=== PATIENT | female | born 1965 | race Caucasian/White ===

== ENCOUNTER → 2017-08-17 | Outpatient (CLI) | payer OTHER ==
--- NOTE | 2017-08-17 15:37 | RAD ---
Lumbar spine, 3 views, 08/17/2017: History: Low back pain The lumbar vertebral heights are well-maintained. The intervertebral disc spaces are well preserved. There are mild scattered marginal spurs. There are moderate degenerative changes involving the facet joints in the lower lumbar spine at L4-5 and L5-S1. The paraspinous soft tissues are unremarkable. IMPRESSION: 1. Mild to moderate scattered degenerative changes as described above. 2. No acute abnormality is detected.
--- NOTE | 2017-08-17 15:37 | RAD ---
Left hip, 2 views, 08/17/2017: History: Hip pain No fracture or dislocation is identified. The hip joint space is well-preserved. The periarticular soft tissues are unremarkable. IMPRESSION: No significant left hip abnormality is detected.
== END | disposition home or self-care (01) ==
LOC: PMG 14:41
PROVIDERS: ATTEND General Practice
DX: M25.552 Pain in left hip (principal); M47.896 Other spondylosis, lumbar region
CPT/HCPCS: 72100; 73502

== ENCOUNTER → 2017-12-01 | Outpatient (CLI) | payer OTHER ==
[2017-12-01 13:46] LABS: BASO # 0.1 x10^3/uL (0.0-0.2); BASO % 1 % (0-3); EOS # 0.1 x10^3/uL (0.0-0.7); EOS % 1 % (0-3); HEMATOCRIT 44.3 % (36.0-47.0); HEMOGLOBIN 14.9 g/dL (12.0-15.5); LYMPH # 1.6 x10^3/uL (1.0-4.8); LYMPH % 24 % (24-48); MEAN CORPUSCULAR HEMOGLOBIN 30 pg (25-35); MEAN CORPUSCULAR HGB CONC 34 g/dL (31-37); MEAN CORPUSCULAR VOLUME 90 fL (79-100); MONO # 0.5 x10^3/uL (0.0-1.1); MONO % 7 % (0-9); NEUT # 4.4 x10^3uL (1.8-7.7); NEUT % 67 % (31-73); PLATELET COUNT 218 x10^3/uL (140-400); RED BLOOD COUNT 4.91 x10^6/uL (3.50-5.40); RED CELL DISTRIBUTION WIDTH 13.6 % (11.5-14.5); WHITE BLOOD COUNT 6.6 x10^3/uL (4.0-11.0)
[2017-12-01 13:53] LABS: ALBUMIN 3.9 g/dL (3.4-5.0); ALBUMIN/GLOBULIN RATIO 1.1 (1.0-1.7); CALCIUM 9.9 mg/dL (8.5-10.1); GFR 58.7; POTASSIUM 4.3 mmol/L (3.5-5.1); TOTAL BILIRUBIN 0.7 mg/dL (0.2-1.0); TOTAL PROTEIN 7.3 g/dL (6.4-8.2)
== END | disposition home or self-care (01) ==
LOC: PMG 13:06
PROVIDERS: ATTEND Nurse Practitioner Family
DX: R53.83 Other fatigue (principal)
CPT/HCPCS: 36415; 80053; 85025

== ENCOUNTER → 2018-03-29 | Outpatient (CLI) | payer OTHER ==
--- NOTE | 2018-03-29 15:36 | RAD ---
Complete abdominal ultrasound History: Intermittent abdominal pain for one week. Comparison: None. Procedure: Transabdominal ultrasound images are obtained. Findings: Visualized pancreas is unremarkable. Liver is normal in echogenicity. No focal hepatic masses are identified. Right lobe of the liver measures 15.7 cm. Gallbladder has an unremarkable appearance. Common bile duct measures normally at 3 mm in diameter. Spleen is homogeneous and measures 9.8 cm in length. Right kidney is normal in size and configuration without hydronephrosis. Left kidney is normal in size and configuration without hydronephrosis. Visualized portions of the aorta and IVC have normal caliber. Impression: 1. Unremarkable abdominal ultrasound. Electronically signed by: Malcolm Penny MD (03/29/2018 3:32 PM) [place] [id number]
== END | disposition home or self-care (01) ==
LOC: PMG 10:07
PROVIDERS: ATTEND Neuromusculoskeletal Medicine & OMM
DX: R10.84 Generalized abdominal pain (principal)
CPT/HCPCS: 76700

== ENCOUNTER → 2019-09-10 | Outpatient (CLI) | payer OTHER ==
[2019-09-10 12:17] LABS: BASO # 0.1 x10^3/uL (0.0-0.2); BASO % 1 % (0-3); EOS # 0.1 x10^3/uL (0.0-0.7); EOS % 1 % (0-3); HEMATOCRIT 46.1 % (36.0-47.0); HEMOGLOBIN 15.4 g/dL (12.0-15.5); LYMPH % 12 % (24-48); MEAN CORPUSCULAR HEMOGLOBIN 31 pg (25-35); MEAN CORPUSCULAR HGB CONC 33 g/dL (31-37); MEAN CORPUSCULAR VOLUME 92 fL (79-100); MONO # 0.4 x10^3/uL (0.0-1.1); MONO % 5 % (0-9); NEUT # 6.7 x10^3uL (1.8-7.7); NEUT % 82 % (31-73); PLATELET COUNT 219 x10^3/uL (140-400); RED BLOOD COUNT 5.02 x10^6/uL (3.50-5.40); RED CELL DISTRIBUTION WIDTH 13.3 % (11.5-14.5); WHITE BLOOD COUNT 8.2 x10^3/uL (4.0-11.0)
[2019-09-10 12:32] LABS: ALBUMIN 3.7 g/dL (3.4-5.0); CALCIUM 8.7 mg/dL (8.5-10.1); GFR 58.2; TOTAL BILIRUBIN 0.5 mg/dL (0.2-1.0); TOTAL PROTEIN 7.4 g/dL (6.4-8.2)
[2019-09-10 23:06] LABS: PROGESTERONE 0.2 ng/mL (.)
[2019-09-12 11:08] LABS: ESTROGEN LEVEL 98 pg/mL (.)
[2019-09-12 13:08] LABS: DHEA 107 ng/dL (31-701)
[2019-09-13 09:08] LABS: TESTOSTERONE TOTAL 7 ng/dL (3-41)
== END | disposition home or self-care (01) ==
LOC: LAB 11:34
PROVIDERS: ATTEND Physician Assistant Medical
DX: E34.9 Endocrine disorder, unspecified (principal)
CPT/HCPCS: 36415; 80053; 82626; 82672; 84144; 84402; 84403; 84443; 85025

== ENCOUNTER → 2019-12-03 | Outpatient (CLI) | payer OTHER ==
[2019-12-03 12:06] LABS: BASO # 0.1 x10^3/uL (0.0-0.2); BASO % 1 % (0-3); EOS % 0 % (0-3); HEMATOCRIT 43.7 % (36.0-47.0); HEMOGLOBIN 14.9 g/dL (12.0-15.5); LYMPH # 1.4 x10^3/uL (1.0-4.8); LYMPH % 23 % (24-48); MEAN CORPUSCULAR HEMOGLOBIN 31 pg (25-35); MEAN CORPUSCULAR HGB CONC 34 g/dL (31-37); MEAN CORPUSCULAR VOLUME 90 fL (79-100); MONO # 0.3 x10^3/uL (0.0-1.1); MONO % 6 % (0-9); NEUT # 4.3 x10^3uL (1.8-7.7); NEUT % 71 % (31-73); PLATELET COUNT 221 x10^3/uL (140-400); RED BLOOD COUNT 4.83 x10^6/uL (3.50-5.40); RED CELL DISTRIBUTION WIDTH 13.9 % (11.5-14.5); WHITE BLOOD COUNT 6.1 x10^3/uL (4.0-11.0)
[2019-12-03 12:15] LABS: BILIRUBIN,URINE NEG (NEG); CLARITY,URINE HAZY; COLOR,URINE AMBER; GLUCOSE,URINE NEG (NEG); NITRITE,URINE NEG (NEG); UROBILINOGEN,URINE 0.2 mg/dL (0.2 mg/dL)
[2019-12-03 12:16] LABS: BACTERIA,URINE MOD /HPF (0-FEW); SQUAMOUS EPITHELIAL CELL,UR FEW /LPF
[2019-12-03 12:18] LABS: ALBUMIN 4.1 g/dL (3.4-5.0); ALBUMIN/GLOBULIN RATIO 1.1 (1.0-1.7); ALK PHOS 86 U/L (46-116); ALT (SGPT) 15 U/L (14-59); ANION GAP 6 (6-14); AST (SGOT) 11 U/L (15-37); BLOOD UREA NITROGEN 25 mg/dL (7-20); BUN/CREATININE RATIO 23 (6-20); CALCIUM 9.5 mg/dL (8.5-10.1); CARBON DIOXIDE 29 mmol/L (21-32); CHLORIDE 101 mmol/L (98-107); CREATININE 1.1 mg/dL (0.6-1.0); GFR 52.2; GLUCOSE 100 mg/dL (70-99); SODIUM 136 mmol/L (136-145); TOTAL BILIRUBIN 0.5 mg/dL (0.2-1.0)
[2019-12-03 12:36] LABS: TOTAL PROTEIN 7.9 g/dL (6.4-8.2)
[2019-12-03 12:38] LABS: C REACTIVE PROTEIN < 0.5 mg/L (0-3.3)
[2019-12-03 13:12] LABS: SEDIMENTATION RATE 5 (0-25)
[2019-12-03 14:41] LABS: FREE T4 1.1 ng/dL (0.76-1.46); THYROID STIM HORMONE (TSH) 2.116 uIU/mL (0.358-3.740)
[2019-12-03 18:06] LABS: RHEUMATOID FACTOR <10.0 IU/mL (0.0-13.9); TESTOSTERONE TOTAL 448 ng/dL (3-41)
[2019-12-05 18:07] LABS: ANA INTERP Negative (.)
== END | disposition home or self-care (01) ==
LOC: LAB 11:22
PROVIDERS: ATTEND Physician Assistant Medical
DX: M25.50 Pain in unspecified joint (principal); E03.9 Hypothyroidism, unspecified
CPT/HCPCS: 36415; 80053; 80061; 81001; 82306; 82607; 84403; 84439; 84443; 84481; 85025; 85651; 86038; 86140; 86431; 87086

== ENCOUNTER → 2020-05-05 | Outpatient (CLI) | payer OTHER | END | disposition home or self-care (01) | LOC: LAB 14:51 | PROVIDERS: ATTEND Internal Medicine Cardiovascular Disease | DX: U07.1 COVID-19 (principal); R11.2 Nausea with vomiting, unspecified | CPT/HCPCS: U0003-CS ==

== ENCOUNTER 2020-05-14 13:58 | Emergency (ER) | payer OTHER ==
[~2020-05-14] VITALS: Ht 170.2 cm; Wt 84.2 kg
--- NOTE | 2020-05-14 14:47 | RAD ---
INDICATION: Reason: chest pain / Spl. Instructions: / History: COMPARISON: August 2016 FINDINGS: Single view of chest obtained. Cardiac silhouette is unremarkable. Mild haziness at the lung bases. No gross osseous destructive lesion. IMPRESSION: * Mild haziness at the lung bases. A portion this is likely secondary to overlapping structures but mild atelectasis or infiltrate could have this appearance. Electronically signed by: Johnathan Jung MD (05/14/2020 2:44 PM) [id number]
[2020-05-14] MEDS ORDERED: KETOROLAC 30 MG/ML VIAL. IVP ONE (15:00)
[2020-05-14] MEDS ORDERED: ONDANSETRON PF 4 MG/2 ML VIAL. IVP ONE (15:00)
[2020-05-14 15:04] LABS: BASO % 0 % (0-3); EOS % 0 % (0-3); LYMPH # 1.1 x10^3/uL (1.0-4.8); LYMPH % 27 % (24-48); MEAN CORPUSCULAR HEMOGLOBIN 30 pg (25-35); MEAN CORPUSCULAR HGB CONC 33 g/dL (31-37); MEAN CORPUSCULAR VOLUME 90 fL (79-100); MONO # 0.3 x10^3/uL (0.0-1.1); MONO % 8 % (0-9); NEUT # 2.7 x10^3uL (1.8-7.7); NEUT % 65 % (31-73); PLATELET COUNT 157 x10^3/uL (140-400); RED BLOOD COUNT 4.99 x10^6/uL (3.50-5.40); RED CELL DISTRIBUTION WIDTH 13.5 % (11.5-14.5); WHITE BLOOD COUNT 4.1 x10^3/uL (4.0-11.0)
[2020-05-14 15:14] LABS: CALCIUM 8.9 mg/dL (8.5-10.1); CREATININE 1.2 mg/dL (0.6-1.0); POTASSIUM 3.6 mmol/L (3.5-5.1)
[2020-05-14 15:26] LABS: ALBUMIN 3.5 g/dL (3.4-5.0); ALBUMIN/GLOBULIN RATIO 0.9 (1.0-1.7); C REACTIVE PROTEIN 4.5 mg/L (0-3.3); TOTAL BILIRUBIN 0.6 mg/dL (0.2-1.0); TOTAL PROTEIN 7.4 g/dL (6.4-8.2)
[2020-05-14] MEDS ORDERED: IV NORMAL SALINE 1,000ML 1,000 ML IV ONE (15:30)
--- NOTE | 2020-05-14 15:33 | EKG ---
[address] [address] Test Date: 2020-05-14 Test Time: 14:34:58 Pat Name: GERARDO CUEVA Department: Room: Gender: F Certified Energy Manager: TO : 1965 Requested By: ROD SPICER Order Number: [id number] Reading MD: Measurements Intervals [place] Rate: 88 P: -36 FL: 132 QRS: 61 QRSD: 88 T: 31 QT: 330 QTc: 402 Interpretive Statements SINUS RHYTHM NORMAL ECG RI6.02 No previous ECG available for comparison
[2020-05-14 15:36] LABS: BILIRUBIN,URINE SMALL (NEG); CLARITY,URINE CLEAR; COLOR,URINE YELLOW; GLUCOSE,URINE NEG (NEG); NITRITE,URINE NEG (NEG); UROBILINOGEN,URINE 0.2 mg/dL (0.2 mg/dL)
[2020-05-14 15:37] LABS: BACTERIA,URINE 0 /HPF (0-FEW); RBC,URINE OCC /HPF (0-2); WBC,URINE OCC /HPF (0-4)
[2020-05-14] MEDS ORDERED: PRED50TA PO (15:51)
--- NOTE | 2020-05-14 15:51 | PHYS DOC ---
Past History Past Medical History: GERD Past Surgical History: Tubal ligation Alcohol Use: Rarely Adult General Chief Complaint Chief Complaint: MULTIPLE COMPLAINTS HPI HPI Patient is 55-year-old female with known coronavirus 19 who presents to the emergency room complaining of chest pains, shortness of breath, body aches, fatigue. She has had symptoms for the last week. They have progressively gotten worse. The chest pain started yesterday. Chest pains come and go and are not in the same place every time. They are not related to breathing. Review of Systems Review of Systems General: Denies fever, chills, sweats. Reports fatigue Eyes: Denies drainage, blurred vision, eye redness HENT: Denies rhinorrhea, sore throat, earache Respiratory: Reports cough, shortness of breath, chest pains Cardiac: Denies edema, palpitations GI: Denies abdominal pain, vomiting. Reports nausea MSK: Denies back pain, neck pain Skin: Denies rash, jaundice Neuro: Denies dizziness reports headache Psychiatric: Denies SI/HI Current Medications Current Medications Current Medications Medications (Trade) Dose Ordered Sig/Heather Start Time Stop Time Status Last Admin Dose Admin Ketorolac Tromethamine (Toradol 30mg Vial) 30 mg 1X ONCE 05/14/20 15:00 05/14/20 15:01 DC 05/14/20 15:00 30 MG Ondansetron HCl (Zofran) 4 mg 1X ONCE 05/14/20 15:00 05/14/20 15:01 DC 05/14/20 15:00 4 MG Sodium Chloride 1,000 ml @ 1,000 mls/hr 1X ONCE 05/14/20 15:30 05/14/20 16:29 Allergies Allergies Allergies Coded Allergies Type Severity Reaction Last Updated Verified No Known Drug Allergies 05/14/20 No Physical Exam Physical Exam General: Awake, alert, NAD. Well Nourished, well hydrated. Cooperative HEENT: Atraumatic, EOMI, PERRL, airway patent, moist oral mucosa Neck: Supple, trachea midline Respiratory: CTA bilaterally, normal effort, no wheezing/crackles CV: RRR, no murmur, cap refill <2 GI: Soft, nondistended, nontender, no masses MSK: No obvious deformities Skin: Warm, dry, intact Neuro: A&O x3, speech NL, sensory and motor grossly intact, no focal deficits Psych: Normal affect, normal mood, not suicidal or homicidal Current Patient Data Vital Signs Vital Signs Date Time Temp Pulse Resp B/P (MAP) Pulse Ox O2 Delivery O2 Flow Rate FiO2 05/14/20 15:07 85 16 111/73 (86) 97 Room Air 05/14/20 14:28 98.2 Lab Results Laboratory Tests Test 05/14/20 14:44 05/14/20 15:09 White Blood Count 4.1 x10^3/uL (4.0-11.0) Red Blood Count 4.99 x10^6/uL (3.50-5.40) Hemoglobin 15.0 g/dL (12.0-15.5) Hematocrit 45.0 % (36.0-47.0) Mean Corpuscular Volume 90 fL (79-100) Mean Corpuscular Hemoglobin 30 pg (25-35) Mean Corpuscular Hemoglobin Concent 33 g/dL (31-37) Red Cell Distribution Width 13.5 % (11.5-14.5) Platelet Count 157 x10^3/uL (140-400) Neutrophils (%) (Auto) 65 % (31-73) Lymphocytes (%) (Auto) 27 % (24-48) Monocytes (%) (Auto) 8 % (0-9) Eosinophils (%) (Auto) 0 % (0-3) Basophils (%) (Auto) 0 % (0-3) Neutrophils # (Auto) 2.7 x10^3uL (1.8-7.7) Lymphocytes # (Auto) 1.1 x10^3/uL (1.0-4.8) Monocytes # (Auto) 0.3 x10^3/uL (0.0-1.1) Eosinophils # (Auto) 0.0 x10^3/uL (0.0-0.7) Basophils # (Auto) 0.0 x10^3/uL (0.0-0.2) D-Dimer (Lyubov) 0.38 mg/L (0.00-0.50) Sodium Level 139 mmol/L (136-145) Potassium Level 3.6 mmol/L (3.5-5.1) Chloride Level 103 mmol/L (98-107) Carbon Dioxide Level 27 mmol/L (21-32) Anion Gap 9 (6-14) Blood Urea Nitrogen 14 mg/dL (7-20) Creatinine 1.2 mg/dL (0.6-1.0) H Estimated GFR (Cockcroft-Gault) 47.0 BUN/Creatinine Ratio 12 (6-20) Glucose Level 91 mg/dL (70-99) Calcium Level 8.9 mg/dL (8.5-10.1) Total Bilirubin 0.6 mg/dL (0.2-1.0) Aspartate Amino Transferase (AST) 11 U/L (15-37) L Alanine Aminotransferase (ALT) 13 U/L (14-59) L Alkaline Phosphatase 80 U/L (46-116) Lactate Dehydrogenase 177 U/L (81-234) Creatine Kinase 38 U/L (26-192) Troponin I Quantitative < 0.017 ng/mL (0-0.055) C-Reactive Protein 4.5 mg/L (0-3.3) H OF-Lcf-H-Type Natriuretic Peptide 65 pg/mL (0-124) Total Protein 7.4 g/dL (6.4-8.2) Albumin 3.5 g/dL (3.4-5.0) Albumin/Globulin Ratio 0.9 (1.0-1.7) L Urine Collection Type Unknown Urine Color Yellow Urine Clarity Clear Urine pH 6.0 Urine Specific [place] >=1.030 Urine Protein Trace (NEG-TRACE) Urine Glucose (UA) Neg mg/dL (NEG) Urine Ketones (Stick) Trace mg/dL (NEG) Urine Blood Neg (NEG) Urine Nitrite Neg (NEG) Urine Bilirubin Small (NEG) Urine Urobilinogen Dipstick 0.2 mg/dL (0.2 mg/dL) Urine Leukocyte Esterase Trace (NEG) Urine RBC Occ /HPF (0-2) Urine WBC Occ /HPF (0-4) Urine Squamous Epithelial Cells None /LPF Urine Bacteria 0 /HPF (0-FEW) EKG EKG [] Radiology/Procedures Radiology/Procedures [] Course & Med Decision Making Course & Med Decision Making Pertinent Labs and Imaging studies reviewed. (See chart for details) Patient is a 55-year-old female who presents to the emergency room with known coronavirus. She has been having intermittent chest pains and shortness of breath. She feels generally unwell. Overall exam is normal. Patient overall appears well. Vitals are normal. Coronavirus work-up was ordered and patient's labs are unremarkable. Her d-dimer is negative. She is not at risk for a pulmonary embolism at this time. I have recommended doing steroids and continuing symptomatic care. Patient's test results and vitals while in the ED were fully reviewed and discussed with the patient. Patient is stable and at this time does not need admission to the hospital. We have discussed strict return precautions and the importance of following up with their Primary Care Physician. Patient stated understanding and was given an opportunity to ask any questions. Patient is in agreement with plan. Dragon Disclaimer Dragon Disclaimer This electronic medical record was generated, in whole or in part, using a voice recognition dictation system. Departure Departure: Impression: Primary Impression: COVID-19 Disposition: 01 HOME/RESIDENCE PRIOR TO ADM Condition: STABLE Referrals: HOWARD MORALES (PCP) Patient Instructions: Shortness of Breath, Thib-uu-Hgej Scripts Prednisone (PREDNISONE) 50 Mg Tablet 1 TAB PO DAILY for inflammation, #7 TAB You received this medication in the emergency room today. You will starting your next dose tomorrow. Prov: ROD SPICER MD 05/14/20 ROD SPICER MD May 14, 2020 15:51
[2020-05-14 17:21] VITALS: BP 126/70
== END 2020-05-14 17:10 | disposition home or self-care (01) ==
LOC: ER 13:58
DX: U07.1 COVID-19 (principal); K21.9 Gastro-esophageal reflux disease without esophagitis
CPT/HCPCS: 36415; 71045; 80053; 81001; 82550; 83615; 83880; 84484; 85025; 85379; 86140; 87086; 93005; 96361; 96374; 96375; 99285; J1885; J2405; J7030

== ENCOUNTER → 2020-08-18 | Outpatient (CLI) | payer OTHER ==
[~2020-08-18] MED LIST: PRED50TA PO
[2020-08-18 13:17] LABS: CLARITY,URINE HAZY; COLOR,URINE ORANGE
[2020-08-18 13:38] LABS: BACTERIA,URINE FEW /HPF (0-FEW); RBC,URINE OCC /HPF (0-2); SQUAMOUS EPITHELIAL CELL,UR FEW /LPF; WBC,URINE OCC /HPF (0-4)
== END ==
LOC: LAB 11:14
PROVIDERS: ATTEND Nurse Practitioner Family
DX: N39.0 Urinary tract infection, site not specified (principal)
CPT/HCPCS: 81001

== ENCOUNTER 2020-10-06 22:19 | Emergency (ER) | payer OTHER ==
[~2020-10-06] VITALS: Ht 170.2 cm; Wt 84.2 kg
[2020-10-06 22:30] VITALS: BP 150/72
--- NOTE | 2020-10-06 23:08 | RAD ---
Exam: Left knee 4 views INDICATION: Knee injury, pain TECHNIQUE: Frontal, lateral and oblique views of the left knee Comparisons: None FINDINGS: Bone mineralization is normal. No acute or healed fractures. Soft tissues are unremarkable. Joint spa toby are well-maintained. IMPRESSION: No acute osseous abnormality. Electronically signed by: Bright Miller MD (10/06/2020 11:06 PM) [facility]
[2020-10-06] MEDS ORDERED: HYDR-2155 PO (23:36)
--- NOTE | 2020-10-06 23:37 | PHYS DOC ---
Past History Past Medical History: GERD Past Surgical History: Tubal ligation Alcohol Use: Rarely General Adult EDM: Chief Complaint: KNEE INJURY HPI: HPI: Patient is a 55-year-old female coming in for left knee pain not relieved by ibuprofen. 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 States the pain is more severe in the medial aspect of the joint line. Pain radiates down to lower leg. Did not hear a popping sound at the time, but pain was instantaneous. Denies any previous injuries to that knee. No lower extremity edema. States he otherwise has been well. Review of Systems: Review of Systems: All other systems within normal limits except for as noted in the HPI Current Medications: Current Meds: Current Medications Medications (Trade) Dose Ordered Sig/Heather Start Time Stop Time Status Last Admin Dose Admin Fentanyl Citrate (Fentanyl 2ml Vial) 75 mcg 1X ONCE 10/06/20 22:45 10/06/20 22:56 DC Allergies: Allergies: Allergies Coded Allergies Type Severity Reaction Last Updated Verified No Known Drug Allergies 05/14/20 No Physical Exam: PE: Constitutional: Well developed, well nourished, no acute distress, non-toxic appearance. [] HENT: Normocephalic, atraumatic, bilateral external ears normal, nose normal. [] Eyes: PERRLA, conjunctiva normal, no discharge. [] Neck: No rigidity, supple, no stridor. [] Cardiovascular: Regular rate and rhythm, brisk cap refill [] Lungs & Thorax: Non labored symmetric respirations, no tachypnea or respiratory distress [] Abdomen: Soft, nondistended. Skin: Warm, dry, no erythema, no rash. [] Back: Unremarkable Extremities: No deformities, range of motion grossly intact, no lower extremity edema. Significant joint effusion. No varusvalgusposterioranterior laxity. Pain over medial joint line. [] Neurologic: Alert and oriented X 3, no focal deficits noted. [] Psychologic: Affect normal, judgement normal, mood normal. [] Current Patient Data: Vital Signs: Vital Signs Date Time Temp Pulse Resp B/P (MAP) Pulse Ox O2 Delivery O2 Flow Rate FiO2 10/06/20 22:30 67 16 150/72 (98) 96 Room Air EKG: EKG: [] Radiology/Procedures: Radiology/Procedures: Exam: Left knee 4 views INDICATION: Knee injury, pain TECHNIQUE: Frontal, lateral and oblique views of the left knee Comparisons: None FINDINGS: Bone mineralization is normal. No acute or healed fractures. Soft tissues are unremarkable. Joint spaces are well-maintained. IMPRESSION: No acute osseous abnormality. Heart Score: Risk Factors: Risk Factors: DM, Current or recent (<one month) smoker, HTN, HLP, family history of CAD, obesity. Risk Scores: Score 0 - 3: 2.5% MACE over next 6 weeks - Discharge Home Score 4 - 6: 20.3% MACE over next 6 weeks - Admit for Clinical Observation Score 7 - 10: 72.7% MACE over next 6 weeks - Early Invasive Strategies Course & Med Decision Making: Course & Med Decision Making Pertinent Labs and Imaging studies reviewed. (See chart for details) [] Dragon Disclaimer: Dragon Disclaimer: This electronic medical record was generated, in whole or in part, using a voice recognition dictation system. Departure Departure: Impression: Primary Impression: Left knee injury Disposition: 01 DC HOME SELF CARE/HOMELESS Condition: STABLE Referrals: HOWARD MORALES (PCP) [facility] Patient Instructions: RICE - Routine Care for Injuries Additional Instructions: Use hinged knee brace on left knee to provide comfort and stability. Scripts Hydrocodone Bit/Acetaminophen (HYDROCODONE-APAP 5-325 ) 1 Each Tablet 1 TAB PO PRN Q6HRS PRN for PAIN for 5 Days, #15 TAB 0 Refills Caution: this medication can make you drowsy. Do not drive or operate heavy machinery when using this medication. Prov: KODY BALL MD 10/06/20 KODY BALL MD Oct 06, 2020 23:37
== END 2020-10-06 23:43 | disposition home or self-care (01) ==
LOC: ER 22:19
DX: S89.92XA Unspecified injury of left lower leg, initial encounter (principal); K21.9 Gastro-esophageal reflux disease without esophagitis; X50.9XXA Other and unspecified overexertion or strenuous movements or postures, initial encounter; Y93.89 Activity, other specified; Y92.89 Other specified places as the place of occurrence of the external cause; Y99.8 Other external cause status
CPT/HCPCS: 73564; 99283

== ENCOUNTER → 2020-10-10 | Outpatient (CLI) | payer OTHER ==
[2020-10-06 22:30] VITALS: BP 150/72
[~2020-10-10] MED LIST changes: +HYDR-2155 PO
--- NOTE | 2020-10-10 16:26 | RAD ---
XR KNEE_AP BILAT STANDING History: Reason: LEFT KNEE PAIN / Spl. Instructions: / History: Comparison: Left knee radiograph 10/06/2020. Technique: AP bilateral standing view of the knees. Findings: Osseous mineralization is normal. There is no fracture or dislocation. Medial and lateral tibial femo ral compartment joint spaces are maintained symmetrically. Soft tissues are unremarkable. Impression: 1. Unremarkable standing AP bilateral knees. No significant joint space narrowing. Electronically signed by: Micah Aguillon MD (10/10/2020 4:23 PM) [facility]
== END ==
LOC: RAD 10:15
PROVIDERS: ATTEND Physician Assistant
DX: M25.562 Pain in left knee (principal)
CPT/HCPCS: 73565

== ENCOUNTER → 2021-05-05 | Outpatient (CLI) | payer OTHER ==
[2021-05-05 13:03] LABS: BASO # 0.1 x10^3/uL (0.0-0.2); BASO % 1 % (0-3); EOS % 1 % (0-3); HEMATOCRIT 41.6 % (36.0-47.0); HEMOGLOBIN 13.9 g/dL (12.0-15.5); LYMPH # 1.7 x10^3/uL (1.0-4.8); LYMPH % 30 % (24-48); MEAN CORPUSCULAR HEMOGLOBIN 31 pg (25-35); MEAN CORPUSCULAR HGB CONC 33 g/dL (31-37); MEAN CORPUSCULAR VOLUME 94 fL (79-100); MONO # 0.4 x10^3/uL (0.0-1.1); MONO % 7 % (0-9); NEUT # 3.6 x10^3uL (1.8-7.7); NEUT % 62 % (31-73); PLATELET COUNT 210 x10^3/uL (140-400); RED BLOOD COUNT 4.44 x10^6/uL (3.50-5.40); RED CELL DISTRIBUTION WIDTH 13.4 % (11.5-14.5); WHITE BLOOD COUNT 5.8 x10^3/uL (4.0-11.0)
[2021-05-05 13:09] LABS: ALBUMIN 3.8 g/dL (3.4-5.0); ALBUMIN/GLOBULIN RATIO 1.1 (1.0-1.7); CALCIUM 9.2 mg/dL (8.5-10.1); CREATININE 0.8 mg/dL (0.6-1.0); GFR 74.7; POTASSIUM 4.3 mmol/L (3.5-5.1); TOTAL BILIRUBIN 0.7 mg/dL (0.2-1.0); TOTAL PROTEIN 7.2 g/dL (6.4-8.2); URIC ACID 3.8 mg/dL (2.6-6.0)
[2021-05-05 14:35] LABS: SEDIMENTATION RATE 3 (0-25)
[2021-05-06 06:09] LABS: RHEUMATOID FACTOR <10.0 IU/mL (0.0-13.9)
[2021-05-06 14:33] LABS: FREE T4 0.95 ng/dL (0.76-1.46); THYROID STIM HORMONE (TSH) 1.849 uIU/mL (0.358-3.740)
[2021-05-07 20:08] LABS: ANA INTERP Positive (.)
== END ==
LOC: LAB 12:19
PROVIDERS: ATTEND Physician Assistant Medical
DX: M06.4 Inflammatory polyarthropathy (principal); R20.2 Paresthesia of skin; E55.9 Vitamin D deficiency, unspecified; E53.8 Deficiency of other specified B group vitamins
CPT/HCPCS: 36415; 80053; 82150; 82306; 82607; 83690; 84439; 84443; 84550; 85025; 85651; 86038; 86431

== ENCOUNTER 2021-05-09 23:06 | Emergency (ER) | payer OTHER ==
[~2021-05-09] VITALS: Ht 373.4 cm; Wt 79.3 kg
--- NOTE | 2021-05-09 23:25 | PHYS DOC ---
Past History Past Medical History: GERD Past Medical History G2T2 Past Surgical History: Other Alcohol Use: Rarely General Adult EDM: Chief Complaint: CHEST PAIN HPI: HPI: ".. I got really severe right upper abdomen and lower Rt. chest pain... areas.. My doctor thinks it is my gall bladder..and I was to get a ultra sound for it.. but the pain is really bad tonight.. " Patient is a 56 year old female who presents with above hx and complaints of Rt.upper abdomen and chest pain. Pain is at times 10 out of 10 and radiates to her back right shoulder. Pt. has history of GERD complaints and her right upper abdomen pain is usually associated with high fat foods. Pain was associated with intake of salad with salad dressing tonight. Patient has been seen by her primary care Floyd for her complaints and has pending US gall bladder colic work up. Pt. has taken anti acids and Zantac with no relief tonight. No history of bad food intake. No history of trauma. No history of specific ill contacts. No history of fever or chills. No recent travel. Patient has multiple family members have had gallbladder problems requiring cholecystectomy at her age. Review of Systems: Review of Systems: Constitutional: Denies fever or chills Eyes: Denies change in visual acuity HENT: Denies nasal congestion or sore throat Respiratory: Denies cough or shortness of breath Cardiovascular: Complains of epigastric chest pain and GERD symptoms GI: Complains of severe right upper quadrant abdominal pain, nausea, vomiting. Denies, bloody stools or diarrhea : Denies dysuria Musculoskeletal: Denies back pain or joint pain Integument: Denies rash Neurologic: Denies headache, focal weakness or sensory changes Endocrine: Denies polyuria or polydipsia Lymphatic: Denies swollen glands Psychiatric: Denies depression or anxiety Family History: Family History: Multiple family members with gallbladder disease requiring cholecystectomy Current Medications: Current Meds: See nursing for home meds Allergies: Allergies: Allergies Coded Allergies Type Severity Reaction Last Updated Verified No Known Drug Allergies 05/14/20 No Physical Exam: PE: Constitutional: Well developed, well nourished, in acute distress, non-toxic appearance. [] HENT: Normocephalic, atraumatic, bilateral external ears normal, oropharynx moist, no oral exudates, nose normal. [] Eyes: PERRLA, EOMI, conjunctiva normal, no discharge. [] Neck: Normal range of motion, no tenderness, supple, no stridor. [] Cardiovascular:Heart rate regular rhythm, no murmur [] bedside monitor shows sinus rhythm rate 60s to 70 Lungs & Thorax: Bilateral breath sounds equal at apex on auscultation [] Abdomen: Bowel sounds normal, soft, epigastric and right upper quadrant tenderness, no masses, no pulsatile masses. [] Rebound to right upper quadrant Skin: Warm, dry, no erythema, no rash. [] Back: No tenderness, no CVA tenderness. [] Extremities: No tenderness, no cyanosis, no clubbing, ROM intact, no edema. [] No psoas sign. No cording. Neurologic: Alert and oriented X 3, normal motor function, normal sensory function, no focal deficits noted. [] Psychologic: Affect anxious, judgement normal, mood normal. [] Current Patient Data: Vital Signs: Vital Signs Date Time Temp Pulse Resp B/P (MAP) Pulse Ox O2 Delivery O2 Flow Rate FiO2 05/09/21 23:18 97.9 78 22 126/73 (90) 95 Room Air EKG: EKG: My interpretation of EKG shows a sinus rhythm at 65 bpm. No acute morphology. Time of this EKG is 2321 hrs. [] Radiology/Procedures: Radiology/Procedures: [][place] [id number] IMAGING REPORT Signed PATIENT: GERARDO CUEVA ACCOUNT: [id number] : 1965 LOCATION: ER AGE: 56 SEX: F EXAM STATUS: REG ER ORD. PHYSICIAN: JORDEN FRANCO MD REASON: pain, N/V, OMNI 300, 75ml & OMNI 240, 30ml PROCEDURE: CT ABD PELV W/ORAL&IV CONTRAST EXAM: CT Abdomen and Pelvis with IV contrast CLINICAL HISTORY: Abdominal pain, nausea, vomiting. COMPARISON: none TECHNIQUE: Helical CT of the abdomen and pelvis was performed following the administration of intravenous contrast. Axial, coronal and sagittal reformatted images were generated. PQRS compliance statement - One or more of the following individualized dose reduction techniques were utilized for this study: 1. Automated exposure control 2. Adjustment of the mA and/or kV according to patient size 3. Use of iterative reconstruction technique FINDINGS: Lower Chest: Linear opacities in lower lobes likely scarring/atelectasis. Abdomen and Pelvis: Gallbladder is normal. No focal liver lesion although there is mild periportal edema, uncertain clinical significance. Spleen, adrenal glands, pancreas are unremarkable. Aorta is normal in caliber. Symmetric nephrograms. No focal renal lesion. No hydronephrosis. No hydroureter. Appendix is normal. Moderate colonic stool content is seen. No small or large bowel dilatation. No bowel obstruction. No abdominal or pelvic ascites. No abdominal or pelvic lymphadenopathy. Bones: No aggressive osseous lesion. IMPRESSION: 1. Moderate colonic stool content. No bowel obstruction. 2. Mild periportal edema, uncertain clinical significance. 3. Gallbladder is normal. No CT evidence for acute cholecystitis. Electronically signed by: Andrew Casey MD (05/10/2021 4:57 AM) [facility] DI[facility]ATED AND SIGNED BY: ANDREW CASEY MD DATE: 05/10/21446 CC: JORDEN FRANCO MD; HOWARD MORALES ~MTH0 [address] [place] [address] IMAGING REPORT Signed PATIENT: GERARDO CUEVA ACCOUNT: [id number] : 1965 LOCATION: ER AGE: 56 SEX: F EXAM STATUS: REG ER ORD. PHYSICIAN: JORDEN FRANCO MD REASON: cp, abd pain PROCEDURE: ACUTE ABDOMEN SERIES EXAM: Frontal view of the chest, AP views of the abdomen in upright and supine positions. CLINICAL INDICATION: Reason: cp, abd pain / Spl. Instructions: / History: COMPARISON: None. FINDINGS and IMPRESSION: The heart is not enlarged. Mediastinal and hilar contours are normal. Patchy opacities right lung base possibly atelectasis or developing consolidation. No pleural effusion or pneumothorax. No abnormal small or large bowel dilatation. Moderate colonic stool content. No abnormal soft tissue mass effect. No suspicious calcifications are seen. No free intraperitoneal gas. Electronically signed by: Andrew Casey MD (05/10/2021 1:58 AM) [facility]ATED AND SIGNED BY: ANDREW CASEY MD DATE: 05/10/21 0157 CC: JORDEN FRANCO MD; HOWARD MORALES ~MTH0 0 Heart Score: C/O Chest Pain: Yes HEART Score for Chest Pain: HEART Score for Chest Pain Response (Comments) Value History Slighlty/Non-Suspicious 0 ECG Normal 0 Age >45 - < 65 1 Risk Factors No Risk Factors 0 Troponin < Normal Limit 0 Total 1 Risk Factors: Risk Factors: DM, Current or recent (<one month) smoker, HTN, HLP, family history of CAD, obesity. Risk Scores: Score 0 - 3: 2.5% MACE over next 6 weeks - Discharge Home Score 4 - 6: 20.3% MACE over next 6 weeks - Admit for Clinical Observation Score 7 - 10: 72.7% MACE over next 6 weeks - Early Invasive Strategies Course & Med Decision Making: Course & Med Decision Making Pertinent Labs and Imaging studies reviewed. (See chart for details) Patient continues to have difficulty drinking contrast in spite of Zofran meds.. Plan to obtain CT at 0400 hrs. Patient symptoms resolved and was discharged home with follow-up with primary care. Patient to keep appointment for ultrasound study of her gallbladder on Tuesday. Patient return if any concerns. Recommend patient stay on a clear fluid diet only for the next 48 hours. No solids. No milk products. Clear fluids only to allow bowel rest. Patient to continue her antacids as previously directed. Return if any concerns. []Impression: 1. Biliary colic 2. Abdomen pain 3. Constipation Dragon Disclaimer: Dragmarsha Disclaimer: This electronic medical record was generated, in whole or in part, using a voice recognition dictation system. Departure Departure: Referrals: HOWARD MORALES (PCP) [place] Disclaimer This chart was dictated in whole or in part using Voice Recognition software in a busy, high-work load, and often noisy Emergency Department environment. It may contain unintended and wholly unrecognized errors or omissions. JORDEN FRANCO MD May 09, 2021 23:25
[2021-05-09] MEDS ORDERED: FAMOTIDINE 20 MG/2 ML VIAL IVP ONE (23:45)
[2021-05-09] MEDS ORDERED: IV RINGERS SOLUTION,LACTATED 1,000 ML IV SCH (23:45)
[2021-05-09] MEDS ORDERED: ONDANSETRON PF 4 MG/2 ML VIAL. IVP ONE (23:45)
[2021-05-09] MEDS ORDERED: MORPHINE SULFATE 10 MG/ML SYRINGE. SQ ONE (23:45)
[2021-05-10 00:09] LABS: BASO # 0.1 x10^3/uL (0.0-0.2); BASO % 1 % (0-3); EOS # 0.1 x10^3/uL (0.0-0.7); EOS % 2 % (0-3); HEMATOCRIT 42.6 % (36.0-47.0); HEMOGLOBIN 14.3 g/dL (12.0-15.5); LYMPH # 2.3 x10^3/uL (1.0-4.8); LYMPH % 33 % (24-48); MEAN CORPUSCULAR HEMOGLOBIN 31 pg (25-35); MEAN CORPUSCULAR HGB CONC 34 g/dL (31-37); MEAN CORPUSCULAR VOLUME 94 fL (79-100); MONO # 0.6 x10^3/uL (0.0-1.1); MONO % 8 % (0-9); NEUT # 3.8 x10^3uL (1.8-7.7); NEUT % 56 % (31-73); PLATELET COUNT 215 x10^3/uL (140-400); RED BLOOD COUNT 4.56 x10^6/uL (3.50-5.40); RED CELL DISTRIBUTION WIDTH 13.2 % (11.5-14.5); WHITE BLOOD COUNT 6.8 x10^3/uL (4.0-11.0)
[2021-05-10 00:23] LABS: CALCIUM 9.3 mg/dL (8.5-10.1); CREATININE 0.9 mg/dL (0.6-1.0); GFR 65.2
[2021-05-10 00:29] LABS: ALBUMIN 3.8 g/dL (3.4-5.0); DIRECT BILIRUBIN 0.1 mg/dL (0.0-0.2); TOTAL BILIRUBIN 0.4 mg/dL (0.2-1.0); TOTAL PROTEIN 7.3 g/dL (6.4-8.2)
[2021-05-10] MEDS ORDERED: KETOROLAC 30 MG/ML VIAL. ONE (01:08)
[2021-05-10 01:26] LABS: BARBITURATES NEG (NEG); BENZODIAZEPINES NEG (NEG); CANNABINOIDS NEG (NEG); COCAINE NEG (NEG); METHADONE NEG (NEG); OPIATES POS (NEG); PHENCYCLIDINE NEG (NEG)
[2021-05-10 01:28] LABS: AMPHETAMINE/METHAMPHETAMINE NEG (NEG)
[2021-05-10 01:56] LABS: COLOR,URINE YELLOW
[2021-05-10 01:57] LABS: BACTERIA,URINE FEW /HPF (0-FEW); BILIRUBIN,URINE NEG (NEG); CLARITY,URINE CLEAR; GLUCOSE,URINE NEG (NEG); NITRITE,URINE NEG (NEG); RBC,URINE 0 /HPF (0-2); SQUAMOUS EPITHELIAL CELL,UR OCC /LPF; UROBILINOGEN,URINE 0.2 mg/dL (0.2 mg/dL)
--- NOTE | 2021-05-10 02:00 | RAD ---
EXAM: Frontal view of the chest, AP views of the abdomen in upright and supine positions. CLINICAL INDICATION: Reason: cp, abd pain / Spl. Instructions: / History: COMPARISON: None. FINDINGS and IMPRESSION: The heart is not enlarged. Mediastinal and hilar contours are normal. Patchy opacities right lung bas e possibly atelectasis or developing consolidation. No pleural effusion or pneumothorax. No abnormal small or large bowel dilatation. Moderate colonic stool content. No abnormal soft tissu e mass effect. No suspicious calcifications are seen. No free intraperitoneal gas. Electronically signed by: Andrew Whalen MD (05/10/2021 1:58 AM) [facility]
[2021-05-10] MEDS ORDERED: CONTRAST GIVEN. MC PRN (02:15)
[2021-05-10] MEDS ORDERED: IOHEXOL 300 MG/ML 75 ML VIAL. IV ONE (02:30)
[2021-05-10] MEDS ORDERED: IOHEXOL 240 MG/ML 50ML VIAL. PO ONE (02:30)
--- NOTE | 2021-05-10 04:23 | EKG ---
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
--- NOTE | 2021-05-10 04:59 | RAD ---
EXAM: CT Abdomen and Pelvis with IV contrast CLINICAL HISTORY: Abdominal pain, nausea, vomiting. COMPARISON: none TECHNIQUE: Helical CT of the abdomen and pelvis was performed following the administration of intrave nous contrast. Axial, coronal and sagittal reformatted images were generated. PQRS compliance statement - One or more of the following individualized dose reduction techniques wer e utilized for this study: 1. Automated exposure control 2. Adjustment of the mA and/or kV according to patient size 3. Use of iterative reconstruction technique FINDINGS: Lower Chest: Linear opacities in lower lobes likely scarring/atelectasis. Abdomen and Pelvis: Gallbladder is normal. No focal liver lesion although there is mild periportal edema, uncertain clini chad significance. Spleen, adrenal glands, pancreas are unremarkable. Aorta is normal in caliber. Symm etric nephrograms. No focal renal lesion. No hydronephrosis. No hydroureter. Appendix is normal. Mode rate colonic stool content is seen. No small or large bowel dilatation. No bowel obstruction. No abdo leisa or pelvic ascites. No abdominal or pelvic lymphadenopathy. Bones: No aggressive osseous lesion. IMPRESSION: 1. Moderate colonic stool content. No bowel obstruction. 2. Mild periportal edema, uncertain clinical significance. 3. Gallbladder is normal. No CT evidence for acute cholecystitis. Electronically signed by: Andrew Whalen MD (05/10/2021 4:57 AM) JUVENAL
[2021-05-10 05:30] VITALS: BP 94/54
--- NOTE | 2021-05-11 08:40 | NUR ---
IP: Patient notified of negative COVID19 test result. Verbalized understanding.
== END 2021-05-10 05:42 | disposition home or self-care (01) ==
LOC: ER 23:06
DX: K80.50 Calculus of bile duct without cholangitis or cholecystitis without obstruction (principal); K59.00 Constipation, unspecified; R07.89 Other chest pain; K21.9 Gastro-esophageal reflux disease without esophagitis; Z20.822 Contact with and (suspected) exposure to COVID-19
CPT/HCPCS: 36415; 74022; 74177; 80048; 80076; 80307; 81001; 81025; 82150; 82550; 83690; 84484; 85025; 87086; 87426; 93005; 96361; 96372; 96374; 96375; 99285; C9803; J2270; J2405; J3490; J7120; Q9966; Q9967; U0003

== ENCOUNTER → 2021-05-13 | Outpatient (CLI) | payer OTHER ==
[2021-05-10 05:30] VITALS: BP 94/54
--- NOTE | 2021-05-13 17:33 | RAD ---
EXAMINATION: US ABDOMEN COMPLETE INDICATION: 56 years, Female, substernal pain. COMPARISON: CT abdomen and pelvis dated 05/10/2021 TECHNIQUE: Grayscale, color Doppler and limited spectral Doppler images of the abdomen were obtained. FINDINGS: LIVER: SIZE (LENGTH): 17 cm. ECHOGENICITY: Normal PARENCHYMA: Homogeneous echotexture. No discrete focal lesion. INTRAHEPATIC BILE DUCTS: Nondilated. PORTAL VEIN: Patent with normal hepatopedal flow. GALLBLADDER: GALLBLADDER WALL THICKNESS: 1.3 mm MORPHOLOGY: Normal morphology. No wall hyperemia or pericholecystic free fluid. LUMEN: Normal. COMMON BILE DUCT DIAMETER: 3.2 mm RIGHT KIDNEY: MEASURES: 12.2 cm in length. MORPHOLOGY/PARENCHYMA: Normal corticomedullary differentiation with no shadowing calculus or discrete masses. COLLECTING SYSTEM: Prominent extrarenal pelvis without serafin hydronephrosis, may relate to overdisten ded bladder. LEFT KIDNEY: MEASURES: 11 cm in length MORPHOLOGY/PARENCHYMA: Normal corticomedullary differentiation with no shadowing calculus or discrete masses. COLLECTING SYSTEM: No hydronephrosis. SPLEEN: SIZE (LENGTH): 9.8 cm PARENCHYMA: Unremarkable. PANCREAS: VISUALIZED PORTIONS: Entire APPEARANCE: Within normal limits. OTHER: RETROPERITONEUM, INFERIOR VENA CAVA: Normal caliber. AORTA: Normal caliber measures up to 2.2 cm FLUID:No free fluid. IMPRESSION: Unremarkable ultrasound abdomen. Specifically normal gallbladder. Electronically signed by: Oleg Carmona MD (05/13/2021 5:30 PM) [id number]
== END ==
LOC: US 10:55
PROVIDERS: ATTEND Physician Assistant Medical
DX: R07.2 Precordial pain (principal)
CPT/HCPCS: 76700

== ENCOUNTER → 2021-05-27 | Outpatient (CLI) | payer OTHER ==
[2021-05-10 05:30] VITALS: BP 94/54
[~2021-05-27] VITALS: Ht 172.7 cm; Wt 81.6 kg
[2021-05-27] MEDS: SINCALIDE 1.63 MCG in IV NORMAL SALINE 50ML 30 ML IV ONE (11:28)
--- NOTE | 2021-05-27 12:33 | RAD ---
EXAM: Nuclear hepatobiliary scan. HISTORY: Pain. TECHNIQUE: Following intravenous administration of 5 mCi Tc 99m Choletec, anterior images of the abdo men were obtained at five minute intervals through one hour. Subsequently, 1.6 mcg CCK was administer ed and additional images to assess gallbladder ejection fraction were obtained. FINDINGS: There is prompt radiotracer uptake by the liver. No focal defect is seen. There is normal e xcretion into the biliary tree. The gallbladder is visualized within 10 minutes and there is free peter w into the duodenum. The gallbladder ejection fraction is 69 percent. IMPRESSION: Normal radionuclide biliary scan. Electronically signed by: Mali Anand MD (05/27/2021 12:30 PM) [facility]
== END ==
LOC: NM 09:55
PROVIDERS: ATTEND Physician Assistant Medical
DX: R10.9 Unspecified abdominal pain (principal)
CPT/HCPCS: 78227; A9537; J2805

== ENCOUNTER → 2021-09-08 | Outpatient (CLI) | payer OTHER ==
[2021-09-08 15:49] LABS: BASO # 0.1 x10^3/uL (0.0-0.2); BASO % 1 % (0-3); EOS # 0.1 x10^3/uL (0.0-0.7); EOS % 1 % (0-3); HEMATOCRIT 40.8 % (36.0-47.0); HEMOGLOBIN 13.8 g/dL (12.0-15.5); LYMPH # 1.4 x10^3/uL (1.0-4.8); LYMPH % 30 % (24-48); MEAN CORPUSCULAR HEMOGLOBIN 31 pg (25-35); MEAN CORPUSCULAR HGB CONC 34 g/dL (31-37); MEAN CORPUSCULAR VOLUME 92 fL (79-100); MONO # 0.4 x10^3/uL (0.0-1.1); MONO % 8 % (0-9); NEUT # 2.7 x10^3uL (1.8-7.7); NEUT % 59 % (31-73); PLATELET COUNT 184 x10^3/uL (140-400); RED BLOOD COUNT 4.45 x10^6/uL (3.50-5.40); RED CELL DISTRIBUTION WIDTH 13.9 % (11.5-14.5); WHITE BLOOD COUNT 4.6 x10^3/uL (4.0-11.0)
--- NOTE | 2021-09-08 15:52 | RAD ---
EXAM: Pelvis and bilateral hips, 3 views; lumbar spine, 3 views; cervical spine, 3 views; chest, 2 vi ews; bilateral hands, 2 views; bilateral knees, 2 views. HISTORY: Inflammatory polyarthropathy COMPARISON: None. FINDINGS: Pelvis and bilateral hips: A frontal view the pelvis and frog-leg views of both hips are obtained. Th ere is no fracture, dislocation or subluxation. The femoral heads are normal in configuration. Lumbar spine: 3 views of the lumbar spine are obtained. There is no significant listhesis. There is d egenerative endplate remodeling and disc space narrowing predominantly at L4-L5. There is facet arthr opathy predominantly at the lower lumbar levels. There is mild subchondral scoliosis involving the sa croiliac joints. Bilateral knees: 2 views of both knees are obtained. There is no fracture, dislocation or subluxation . There is no joint effusion. There is a small benign bone island within the right lateral femoral co ndyle. Cervical spine: 3 views of the cervical spine are obtained. There is degenerative endplate remodeling at C5-C6 and C6-C7. There is mild multilevel facet arthropathy. There is no listhesis. There is no f racture. Bilateral hands: 2 views of both hands are obtained. There is no fracture, dislocation or subluxation . There is no suspicious osseous lesion. There is no foreign body. Chest: 2 views of chest are obtained. There is no infiltrate, pleural effusion or pneumothorax. The h eart is normal in size. IMPRESSION: 1. Multilevel degenerative change involving the cervical and lumbar spine, described above. 2. Minimal degenerative change involving the sacroiliac joints. 3. No acute pulmonary finding. Electronically signed by: Mali Anand MD (09/08/2021 3:50 PM) [id number]
[2021-09-08 15:57] LABS: ALBUMIN 3.9 g/dL (3.4-5.0); ALBUMIN/GLOBULIN RATIO 1.2 (1.0-1.7); ALK PHOS 94 U/L (46-116); ALT (SGPT) 25 U/L (14-59); ANION GAP 5 (6-14); AST (SGOT) 20 U/L (15-37); BLOOD UREA NITROGEN 25 mg/dL (7-20); BUN/CREATININE RATIO 25 (6-20); CALCIUM 8.9 mg/dL (8.5-10.1); CARBON DIOXIDE 31 mmol/L (21-32); CHLORIDE 103 mmol/L (98-107); GFR 57.8; GLUCOSE 79 mg/dL (70-99); LIPASE 131 U/L (73-393); POTASSIUM 4.2 mmol/L (3.5-5.1); SODIUM 139 mmol/L (136-145); TOTAL BILIRUBIN 0.5 mg/dL (0.2-1.0); TOTAL PROTEIN 7.2 g/dL (6.4-8.2)
[2021-09-08 16:05] LABS: C REACTIVE PROTEIN < 0.5 mg/L (0-3.3)
[2021-09-08 16:54] LABS: CLARITY,URINE CLEAR; COLOR,URINE YELLOW
[2021-09-08 16:55] LABS: BACTERIA,URINE 0 /HPF (0-FEW); BILIRUBIN,URINE NEG (NEG); GLUCOSE,URINE NEG (NEG); NITRITE,URINE NEG (NEG); RBC,URINE OCC /HPF (0-2); SQUAMOUS EPITHELIAL CELL,UR OCC /LPF; UROBILINOGEN,URINE 0.2 mg/dL (0.2 mg/dL); WBC,URINE OCC /HPF (0-4)
[2021-09-08 16:56] LABS: SEDIMENTATION RATE 3 (0-25)
[2021-09-09 01:23] LABS: RHEUMATOID FACTOR <10.0 IU/mL (<14.0)
[2021-09-09 02:07] LABS: ESTRADIOL LEVEL <5.0 pg/mL (.)
[2021-09-09 11:09] LABS: SSA ANTIBODY 0.7 AI (0.0-0.9); SSB ANTIBODY <0.2 AI (0.0-0.9)
[2021-09-09 20:06] LABS: ANA INTERP Positive (.)
[2021-09-09 20:17] LABS: FREE T4 0.84 ng/dL (0.76-1.46); THYROID STIM HORMONE (TSH) 1.785 uIU/mL (0.358-3.740)
== END ==
LOC: RAD 14:28
PROVIDERS: ATTEND Family Medicine
DX: M47.812 Spondylosis without myelopathy or radiculopathy, cervical region (principal); M47.816 Spondylosis without myelopathy or radiculopathy, lumbar region; M48.061 Spinal stenosis, lumbar region without neurogenic claudication; M48.8X6 Other specified spondylopathies, lumbar region; M48.8X2 Other specified spondylopathies, cervical region; M06.4 Inflammatory polyarthropathy
CPT/HCPCS: 36415; 71046; 72040; 72100; 73502; 80053; 81001; 82607; 82652; 82670; 83690; 84402; 84403; 84439; 84443; 85025; 85651; 86038; 86140; 86235; 86431; 73120-50; 73560-50